=== PATIENT | female | born 1970 ===

== ENCOUNTER → 2020-06-23 07:00 | Outpatient (CLI) | payer OTHER | END | disposition home or self-care (01) | LOC: LAB 07:00 → ADM 10:00 → CIR.AMB 06-30 10:00 → EDSTATUS 06-30 10:00 | PROVIDERS: ATTEND Orthopaedic Surgery Hand Surgery | DX: U07.1 COVID-19 (principal); M24.541 Contracture, right hand; Z01.811 Encounter for preprocedural respiratory examination; Z01.812 Encounter for preprocedural laboratory examination; E11.9 Type 2 diabetes mellitus without complications; E78.00 Pure hypercholesterolemia, unspecified; E78.3 Hyperchylomicronemia; D65 Disseminated intravascular coagulation [defibrination syndrome]; D66 Hereditary factor VIII deficiency; N39.0 Urinary tract infection, site not specified; R05 Cough; I10 Essential (primary) hypertension; Z01.810 Encounter for preprocedural cardiovascular examination ==

== ENCOUNTER 2020-10-13 06:44 | Day surgery (SDC) | payer OTHER | END 2020-10-13 14:35 | disposition home or self-care (01) | LOC: CIR.AMB 06:44 | PROVIDERS: ATTEND Orthopaedic Surgery Hand Surgery | DX: M24.541 Contracture, right hand (principal); Z20.822 Contact with and (suspected) exposure to COVID-19 ==